=== PATIENT | male | born 1970 | race Caucasian/White ===

== ENCOUNTER 2019-09-27 10:41 | Emergency (ER) | payer MEDICAID ==
[~2019-09-27] VITALS: Ht 160 cm; Wt 87.1 kg
[2019-09-27 10:47] VITALS: Ht 160 cm; Wt 87.1 kg
[2019-09-27 11:46] LABS: BASOPHIL % 0.7 % (0-2); PLATELET COUNT 240 x10^3mcL (130-400); RED CELL DISTRIBUTION WIDTH 12.6 % (11.5-14.5)
[2019-09-27 11:56] LABS: CALCIUM 8.3 mg/dL (8.5-10.1); CARBON DIOXIDE 28.7 mmol/L (21-32); CHLORIDE SERUM 96 mmol/L (98-107); GFR1 > 60 mL/min; GLUCOSE SERUM 245 mg/dL (74-106); POTASSIUM SERUM 3.9 mmol/L (3.5-5.1); SODIUM SERUM 135 mmol/L (136-145)
[2019-09-27 12:00] LABS: ALBUMIN 3.5 g/dL (3.4-5.0); ALKALINE PHOSPHATASE 110 U/L (46-116); ALT/SGPT 50 U/L (16-63); AST/SGOT 37 U/L (15-37); BILIRUBIN TOTAL 0.8 mg/dL (0.20-1.00); LIPASE 142 IU/L (73-393); TOTAL PROTEIN, SERUM 7.8 g/dL (6.4-8.2)
[2019-09-27 12:25] LABS: UA SPECIFIC GRAVITY >=1.030 (1.005-1.035); microscopic required? YES; urine erythrocyte 1+ (NEGATIVE)
[2019-09-27 13:59] VITALS: BP 166/94
== END 2019-09-27 13:59 | disposition home or self-care (01) ==
LOC: ED 10:41
PROVIDERS: Emergency Medicine
DX: M54.9 Dorsalgia, unspecified (principal); E11.65 Type 2 diabetes mellitus with hyperglycemia; I10 Essential (primary) hypertension; F17.210 Nicotine dependence, cigarettes, uncomplicated
CPT/HCPCS: 99406; J1885; J2270; J2405